=== PATIENT | male | born 1960 | race Caucasian/White ===

== ENCOUNTER → 2018-07-28 11:04 | Outpatient (CLI) | payer OTHER, SELFPAY ==
--- NOTE | 2018-07-28 11:21 | EKG12_ITS ---
Test Reason : PRE-OP Blood Pressure : / mmHG Vent. Rate : 055 BPM Atrial Rate : 055 BPM P-R Int : 154 ms QRS Dur : 100 ms QT Int : 416 ms P-R-T Axes : 021 037 050 degrees QTc Int : 397 ms Sinus bradycardia Otherwise normal ECG Confirmed by EVE ENGEL ([id number]), order editor VIKTORIYA SELF ([id number]) on 07/30/2018 10:55:07 AM Referred By: Miky Edge Confirmed By:EVE ENGEL
[2018-07-28 12:20] LABS: Hematocrit 48.2 % (40-54); Hemoglobin 16.6 g/dl (13.0-16.5); Mean Corp Hgb Conc 34.4 g/gl (32-36); Mean Corpuscular Hgb 29.3 pg (27.0-32.0); Mean Corpuscular Volume 85.2 fL (80-94); Mean Platelet Vol. 10.6 fl (6.2-12.0); Platelet Count 239 K/mm3 (150-450); RBC Distribution Width CV 13.4 % (11.6-14.6); RBC Distribution Width SD 41.2 fl (35.1-43.9); Red Blood Count 5.66 M/mm3 (4.6-6.2); White Blood Count 5.5 K/mm3 (4.4-11.0)
[2018-07-28 12:27] LABS: Scan Indicated on CBC? Y/N NO
[2018-07-28 12:49] LABS: Anion Gap 5 (5-15); BUN 22 mg/dL (7-18); BUN/Creat Ratio 21.8 RATIO (10-20); Calcium,Total 9.1 mg/dL (8.5-10.1); Chloride 109 mmol/L (98-107); Creatinine, Serum 1.01 mg/dL (0.70-1.30); EST Glomerular Filtration Rate 81 mL/min (>60); Est Glom Filt Rate - Afr Amer 98 mL/min (>60); Glucose 103 mg/dL (74-106); Potassium 3.5 mmol/L (3.5-5.1); Sodium Level 142 mmol/L (136-145)
== END ==
PROVIDERS: Family Provider Family Medicine; PCP Family Medicine; Referring Provider Surgery; Visit Provider Surgery
DX: Z01.810 Encounter for preprocedural cardiovascular examination (principal); Z01.812 Encounter for preprocedural laboratory examination
CPT/HCPCS: 36415; 80048; 85027; 93005

== ENCOUNTER → 2020-05-23 07:16 | Outpatient (CLI) | payer OTHER, SELFPAY ==
[2020-05-23 10:12] LABS: Absolute Lymphocyte Count 1.65 X10^3/uL (0.83-4.51); Absolute Neutrophil Count 2.6 X10^3/uL (2.0-7.7); Basophil# 0.03 X10^3/uL; Basophil% 0.6 % (0-1); Eosinophil# 0.13 X10^3/uL; Eosinophils% 2.7 % (0-5); Hematocrit 50.1 % (40-54); Hemoglobin 16.2 g/dL (13.0-16.5); Lymphocyte # 1.65 X10^3/ul (4.0); Lymphocyte % 34.2 % (19-41); Mean Corp Hgb Conc 32.3 g/dL (32-36); Mean Corpuscular Hgb 29.5 pg (27.0-32.0); Mean Corpuscular Volume 91.3 fL (80-94); Mean Platelet Vol. 10.7 fl (6.2-12.0); Monocyte# 0.41 X10^3/uL; Monocyte% 8.5 % (0-10); NRBC Flagged by Analyzer 0 % (0-5); Neutrophil # 2.59 X10^3/uL (2.7-7.7); Neutrophil % 53.6 % (47-70); Platelet Count 230 K/mm3 (150-450); RBC Distribution Width CV 13.2 % (11.6-14.6); RBC Distribution Width SD 44.5 fl (35.1-43.9); Red Blood Count 5.49 M/mm3 (4.6-6.2); White Blood Count 4.8 K/mm3 (4.4-11.0)
[2020-05-23 10:47] LABS: ALB/GLOB Ratio 1.3 RATIO (0.9-2.4); AST(SGOT) 35 U/L (15-37); Alanine Aminotransfer ALT/SGPT 64 U/L (16-61); Albumin, Serum 3.9 g/dL (3.2-5.0); Alkaline Phosphatase 88 U/L (45-117); Anion Gap 6 (5-15); BUN 16 mg/dL (7-18); BUN/Creat Ratio 14.5 RATIO (10-20); Chloride 105 mmol/L (98-107); Cholesterol 157 mg/dL (200); EST Glomerular Filtration Rate 73 mL/min (>60); Est Glom Filt Rate - Afr Amer 88 mL/min (>60); Globulin 3.1 g/dL (2.2-4.2); Glucose 89 mg/dL (74-106); High Density Lipoprotein 38 mg/dL; Potassium 3.2 mmol/L (3.5-5.1); Sodium Level 141 mmol/L (136-145); Thyroid Stim Hormone (TSH) 1.92 uIU/mL (0.358-3.74); Triglycerides 171 mg/dL; Very Low Density Lipoprotein 34 mg/dL (5-40)
[2020-05-24 03:07] LABS: Hepatitis C Ab <0.1 s/co ratio (0.0-0.9)
== END ==
DX: Z00.00 Encounter for general adult medical examination without abnormal findings (principal); Z11.59 Encounter for screening for other viral diseases; Z12.5 Encounter for screening for malignant neoplasm of prostate
CPT/HCPCS: 36415; 80053; 80061; 84153; 84443; 85025; 86803; 86804; G0103

== ENCOUNTER → 2020-06-08 07:55 | Outpatient (CLI) | payer OTHER, SELFPAY ==
--- NOTE | 2020-06-08 07:57 | ECHOD_ITS ---
Reason For Study: HTN Procedure This was a 2D Doppler, Color Flow transthoracic echocardiogram. Exam performed in department. Left Ventricle Normal LV size. Left ventricular systolic function is normal. The estimated ejection fraction is 65 %. No regional wall motion abnormalities noted. Right Ventricle Normal RV size. Normal systolic function. Atria Normal left atrium. Normal right atrium. Mitral Valve Normal mitral valve. Trivial eccentric mitral valve insufficiency. Tricuspid Valve Normal tricuspid valve. Mild tricuspid valve insufficiency. Aortic Valve Normal aortic valve. Trisinus/trileaflet aortic valve. Pulmonic Valve Normal pulmonic valve. Great Vessels Normal aortic root. The pulmonary artery is normal size. Normal inferior vena cava. Pericardium/Pleural No pericardial effusion. MMode/2D Measurements & Calculations LVIDd: 4.5 cm IVSd: 1.3 cm Ao root diam: 2.6 cm LVIDs: 2.1 cm LVPWd: 1.1 cm RVDd: 4.0 cm FS: 52.1 % LAV(MOD-bp): 54.0 ml LVAd ap4: 24.2 cm2 SV(MOD-sp4): 40.2 ml LAV(MOD-bp) Indexed: 25.1 ml/m2 EDV(MOD-sp4): 61.7 ml LAV(MOD-sp2): 55.8 ml EDV(sp4-el): 60.3 ml LAV(MOD-sp4): 51.8 ml LVAs ap4: 13.0 cm2 ESV(MOD-sp4): 21.5 ml ESV(sp4-el): 19.7 ml EF(MOD-sp4): 65.1 % EF(sp4-el): 67.3 % SV(sp4-el): 40.6 ml LA A4 area: 18.8 cm2 LA dimension(2D): 3.3 cm RA A4 area: 13.0 cm2 Doppler Measurements & Calculations MV E max sonia: 74.7 cm/sec Ao V2 max: 103.5 cm/sec LV V1 max: 98.0 cm/sec MV A max sonia: 56.6 cm/sec Ao max P.3 mmHg LV V1 max P.8 mmHg MV E/A: 1.3 Ao V2 mean: 75.5 cm/sec Ao mean P.5 mmHg Ao V2 VTI: 22.5 cm PA V2 max: 96.3 cm/sec TR max sonia: 194.2 cm/sec TR max P.1 mmHg Interpretation Summary Normal LV size. Left ventricular systolic function is normal. The estimated ejection fraction is 65 %. Mild tricuspid valve insufficiency. Structurally normal valves. Ordering Physician: LORENA GONZALES Referring Physician: LORENA GONZALES Performed By: Roof, Carmen, RDCS, RVT
== END ==
DX: I10 Essential (primary) hypertension (principal); I05.9 Rheumatic mitral valve disease, unspecified
CPT/HCPCS: 93306

== ENCOUNTER 2021-03-27 12:45 | Emergency (ER) | payer BC, SELFPAY ==
[2021-03-27 12:47] VITALS: BP 134/107; PULSE 80; RESP 18; TEMP 36.2; O2SAT 96; BMI 29.9
[2021-03-27 13:23] LABS: Absolute Lymphocyte Count 1.12 X10^3/uL (0.83-4.51); Basophil# 0.01 X10^3/uL; Basophil% 0.1 % (0-1); Hematocrit 48.2 % (40-54); Hemoglobin 16.7 g/dL (13.0-16.5); Lymphocyte # 1.12 X10^3/ul (0.83-4.51); Mean Corp Hgb Conc 34.6 g/dL (32-36); Mean Corpuscular Hgb 29.5 pg (27.0-32.0); Mean Platelet Vol. 10.9 fl (6.2-12.0); NRBC Flagged by Analyzer 0 % (0-5); Neutrophil # 6.03 X10^3/uL (2.7-7.7); Neutrophil % 80.5 % (47-70); Platelet Count 156 K/mm3 (150-450); RBC Distribution Width CV 13.5 % (11.6-14.6); RBC Distribution Width SD 42.1 fl (35.1-43.9); Red Blood Count 5.67 M/mm3 (4.6-6.2); White Blood Count 7.5 K/mm3 (4.4-11.0)
[2021-03-27 13:31] LABS: Anion Gap 10 (5-15); BUN 48 mg/dL (7-18); BUN/Creat Ratio 23.9 RATIO (10-20); Calcium,Total 9.1 mg/dL (8.5-10.1); Chloride 93 mmol/L (98-107); Creatinine, Serum 2.01 mg/dL (0.70-1.30); EST Glomerular Filtration Rate 36 mL/min (>60); Est Glom Filt Rate - Afr Amer 44 mL/min (>60); Estimated Creatinine Clearance 41.63 ml/min; Glucose 138 mg/dL (74-106); Sodium Level 133 mmol/L (136-145)
[2021-03-27 14:32] VITALS: BP 122/82; PULSE 90; RESP 21; RESP 23; O2SAT 95
--- NOTE | 2021-03-27 14:33 | EKG12_ITS ---
Test Reason : SOB Blood Pressure : / mmHG Vent. Rate : 090 BPM Atrial Rate : 090 BPM P-R Int : 154 ms QRS Dur : 098 ms QT Int : 366 ms P-R-T Axes : 020 026 022 degrees QTc Int : 447 ms Normal sinus rhythm Normal ECG Confirmed by VIKASH REYNA MD ([id number]), online content editor VERNELL HAMILTON ([id number]) on 03/29/2021 10:28:55 AM Referred By: PELON Confirmed By:VIKASH REYNA MD
[2021-03-27 15:04] LABS: D-Dimer Quantitative (DVT/PE) 0.94 FEU/ug/m (0.27-0.49)
[2021-03-27 15:05] LABS: Troponin-I HS 18 pg/mL (3.0-78.0)
[2021-03-27 15:11] LABS: BNP,B-Type NATRIURETIC PEPTIDE 8.2 pg/mL (0-100)
--- NOTE | 2021-03-27 15:18 | EDS_ITS ---
HPI HPI - URI History of Present Illness Chief Complaint: Shortness of Breath Narrative Narrative: 60-year-old male with history of hypertension hyperlipidemia presenting with illness since 17 March 2021. He states that this began with a cough. He has had fatigue and body aches. His fevers have resolved. He expresses that he still has dyspnea especially with exertion. Patient states he is not having chest pain. He does report that he has decreased p.o. intake because he just does not feel like eating or drinking. He has had some diarrhea but is not having any abdominal pain. ROS ROS ED Constitutional Constitutional ED: Reports chills and fever(s) Eyes Eyes: Denies blurry vision or diplopia ENT ENT ED: Denies rhinorrhea or sore throat Cardiovascular Cardiovascular: Denies chest pain or palpitations Respiratory/Chest Respiratory/Chest: Reports cough, dyspnea and dyspnea on exertion Gastrointestinal Gastrointestinal: Reports diarrhea; Denies abdominal pain, nausea or vomiting Genitourinary Genitourinary ED: Denies dysuria or hematuria Musculoskeletal Musculoskeletal: Reports myalgias; Denies arthralgias or neck pain Integumentary Denies Abrasions or rash Neurologic Neurologic: Denies headache(s), paresthesias or weakness PFSH PFSH Medical History Anxiety Hypertension Home Medications dexamethasone 6 mg PO DAILY #7 tab 03/27/21 [Rx Last Taken Unknown] ondansetron 4 mg PO Q8H PRN PRN #20 tab 03/27/21 [Rx Last Taken Unknown] Allergy/AdvReac Type Severity Reaction Status Date / Time No Known Allergies Allergy Verified 03/27/21 12:50 Social History Smoking Status: Never smoker EXAM Physical Exam Const Vital Signs: 03/27/21 12:47 03/27/21 14:32 Temperature 97.2 F L Temperature Source Temporal Pulse Rate 80 90 Respiratory Rate 18 23 H Blood Pressure 134/107 H 122/82 H Blood Pressure Mean 116 95 Pulse Ox 96 95 Oxygen Delivery Method Room Air Room Air General Appearance ED: NAD; Negative for cyanotic, diaphoretic or pallor HEENT normocephalic and atraumatic Eyes PERRL and EOMs intact bilaterally Neck no lymphadenopathy, supple and no meningeal signs Resp normal respiratory effort Auscultation: rales bilateral base; Negative for wheezes GI non-tender and non-distended Palpation: soft Neuro oriented x3 and CN's II-XII intact bilaterally Sensorium / Orientation: alert Motor Exam: strength 5/5 throughout Psych mental status grossly normal Skin General Skin Exam: Negative for jaundice or pallor MDM MDM MDM Narrative Medical decision making narrative: Patient presenting with symptoms of COVID-19 since 17 March 2021. Patient on vaccinated. He states he would be amenable to inpatient therapeutic if he qualified. He is given dexamethasone 6 mg after tested positive for COVID-19. EKG on my interpretation shows sinus rhythm with a ventricular rate of 90 bpm without sign of ischemic change or dysrhythmia. CBC shows no leukocytosis white blood cell count of 7.5. Hemoglobin 16.7 and likely hemoconcentrated since he is dehydrated with a creatinine of 2.0 and a BUN of 48. Patient was given a bolus of IV fluids 500 cc. BMP also does show that his potassium is low which is likely due to decreased p.o. intake. Magnesium was ordered and patient was given 40 mEq of potassium. BNP is 8.2. High-sensitivity troponin is 18. D-dimer is elevated at 0.94 and patient had a CTA of the chest which did not show pulmonary emboli. Patient's pulse ox was 85% on room air initially. When he ambulates on 2 L he is 92 to 93%. I discussed this with his primary care doctor Dr. Sanju Maya who is in [place]. I discussed the patient's acute kidney injury with a creatinine of 2.01 as well as his low potassium and other electrolytes. Believe this is from him not eating and drinking enough. He did agree. In addition to this the patient's glucose is 138 and he has not eaten in 24 hours so I did express my concern for possibly early diabetes and he acknowledged understanding of this. He states that he will follow-up blood work this next week and add an A1c to this. P atient was counseled to drink plenty of fluids especially fluids with electrolytes such as Gatorade and Pedialyte do not contain sugar. Patient will be discharged home with a prescription for Zofran and dexamethasone. He is to follow-up with his primary care physician. Impression: 1. COVID-19 pneumonitis 2. Hypokalemia 3. Dehydration 4. Acute kidney injury 5. Hypoxia 6. Elevated glucose Lab Data Attestation: I reviewed the patient's lab results. Labs: Laboratory Results - last 24 hr 03/27/21 03/27/21 03/27/21 13:10 13:10 13:10 WBC 7.5 RBC 5.67 Hgb 16.7 H Hct 48.2 MCV 85.0 MCH 29.5 MCHC 34.6 RDW Std Deviation 42.1 RDW Coeff of Rachelle 13.5 Plt Count 156 MPV 10.9 Immature Gran % (Auto) 0.400 Neut % (Auto) 80.5 H Lymph % (Auto) 15.0 L Mcmullen % (Auto) 4.0 Eos % (Auto) 0.0 Baso % (Auto) 0.1 Absolute Neuts (auto) 6.0 Absolute Lymphs (auto) 1.12 Nucleated RBC % 0 D-Dimer Quant (PE/DVT) 0.94 H* Sodium 133 L Potassium 3.0 L Chloride 93 L Carbon Dioxide 30.0 Anion Gap 10 BUN 48 H Creatinine 2.01 H Estim Creat Clear Calc 41.63 Est GFR (MDRD) Af Amer 44 L Est GFR (MDRD) Non-Af 36 L BUN/Creatinine Ratio 23.9 H Glucose 138 H Calcium 9.1 Magnesium Troponin I High Sens B-Natriuretic Peptide 03/27/21 03/27/21 03/27/21 13:10 13:10 13:10 WBC RBC Hgb Hct MCV MCH MCHC RDW Std Deviation RDW Coeff of Rachelle Plt Count MPV Immature Gran % (Auto) Neut % (Auto) Lymph % (Auto) Mcmullen % (Auto) Eos % (Auto) Baso % (Auto) Absolute Neuts (auto) Absolute Lymphs (auto) Nucleated RBC % D-Dimer Quant (PE/DVT) Sodium Potassium Chloride Carbon Dioxide Anion Gap BUN Creatinine Estim Creat Clear Calc Est GFR (MDRD) Af Amer Est GFR (MDRD) Non-Af BUN/Creatinine Ratio Glucose Calcium Magnesium 2.4 Troponin I High Sens 18 B-Natriuretic Peptide 8.2 Radiography Diagnostic Testing: Clinical Impression(s) from Imaging Studies Chest CTA 03/27/21 15:35 IMPRESSION: Bilateral pulmonary infiltrates involving both lungs worse in the lower lobes and in a preferential lateral distribution. Pneumonitis associated with Covid should be ruled out. Electronically Signed: Gilbert Deluca MD at 15:57 EST , Service support , Discharge Plan Triage Chief Complaint: Shortness of Breath ED Provider: Pino Taylor Dx/Rx/DC Orders Instructions: Coronavirus Disease 2019 (COVID-19): Caring for Yourself or Others, COVID-19: Lying in a Prone Position (Proning) Prescriptions: New dexamethasone 6 mg tablet 6 mg PO DAILY Qty: 7 RF: 0 ondansetron 4 mg tablet,disintegrating 4 mg PO Q8H PRN PRN (Reason: Nausea) Qty: 20 RF: 0 Referrals: KANWAL MAYA [Other] Disposition Disposition: Home, Self Care
[2021-03-27] MEDS: Potassium Chloride Oral Tablet 20 MEQ 40 MEQ PO (15:21)
[2021-03-27 15:25] LABS: Magnesium 2.4 mg/dL (1.6-2.6)
[2021-03-27] MEDS: dexAMETHasone 10 MG/ML Vial 6 MG IV (15:28)
--- NOTE | 2021-03-27 15:35 | CT_ITS ---
STUDY: CTA CHEST REASON FOR EXAM: Male, 60 years old. Dyspnea RADIATION DOSAGE (If Supplied By Facility): CTDIvol = ( 12.00 ) mGy, DLP = ( 479.94 ) mGycm TECHNIQUE: The examination was performed with the intravenous administration of IV 100mL Isovue-370. Post-processing of the angiographic images was performed, with multiplanar reformation and 3D reconstruction. Individualized dose optimization techniques were used for this CT. COMPARISON: None. FINDINGS: Normal enhancement of the main pulmonary artery and right and left pulmonary arteries. Normal enhancement of the bilateral peripheral pulmonary arteries. There is no demonstrated pulmonary embolism. Normal thoracic aorta and visualized great vessels. There is no demonstrated aortic dissection. Normal heart and pericardium. Normal mediastinum. Normal hilar regions. Normal visualized trachea and bronchi. The lungs are well expanded. Diffuse bilateral pulmonary infiltrates involving both upper and lower lobes. This is more prominent in the lower lobes. Normal pleura. Normal chest wall structures. Normal osseous structures. Diffuse fatty infiltration of the liver. CT/CTA Chest W/WO Contrast IMPRESSION: Bilateral pulmonary infiltrates involving both lungs worse in the lower lobes and in a preferential lateral distribution. Pneumonitis associated with Covid should be ruled out. Electronically Signed: Gilbert Deluca MD at 15:57 EST , Service support ,
--- NOTE | 2021-03-27 16:00 | ED.RN ---
PT. HAS VERBALIZED THEY DO NOT WISH TO BE INTUBATED.
[2021-03-27 16:43] VITALS: O2SAT 96
[2021-03-27 16:54] VITALS: O2SAT 93
--- NOTE | 2021-03-27 17:15 | CM.ED ---
Social Work Referral Source: Dr. Taylor Reason for Consult: COVID-19 positive, requires home O2 Patient requires 2L home O2 for home going. Patient in agreement to have O2 set up through [employer]. Clinical documentation and [employer] faxed and called to [employer] after hours. Portable tank provided and RT to review with patient. CM notified for follow up. Plan: Home with O2 through [employer], sent home on 2L D. Richy, DIRECTOR SALES TRAINING, CUSTOMER FACILITIES SUPERVISOR
--- NOTE | 2021-03-28 17:36 | CASEMGMT ---
ELAYNE MONTEIRO ED COVID Home O2 Follow-up: This ELAYNE MONTEIRO contacted pt via phone. Pt's answered and pt deferred to her as he did not feel up to speaking for any length of time. Pt's reports pt to be feeling better. Reports his PO to be in the low 90's on 2l/min O2. ,Pt denies any SOB. Pt's reports pt to be eating, drinking, and showered this afternoon. Reports that she and pt both received immunity infusions at [facility] this afternoon. Pt does c/o weakness. Prescriptions were obtained with their [id number] assistance and they plan to call their PCP tomorrow to arrange follow-up. Pt's denies any questions or concerns at this time. Marielos Cuenca RN CM
--- NOTE | 2021-03-29 13:36 | CASEMGMT ---
LEAYNE MONTEIRO NOTE: TC to pt for ED O2 f/u. No answer. Non-descript VM left for pt to return call if he has any questions or concerns. ELAYNE MONTEIRO phone number provided. Thais GERARDO RN CM
== END 2021-03-27 17:57 | disposition home or self-care (01) ==
PROVIDERS: Emergency Provider Student in an Organized Health Care Education/Training Program; Visit Provider Student in an Organized Health Care Education/Training Program
DX: U07.1 COVID-19 (principal); N17.9 Acute kidney failure, unspecified; J12.82 Pneumonia due to coronavirus disease 2019; E86.0 Dehydration; I10 Essential (primary) hypertension; E78.5 Hyperlipidemia, unspecified; E87.6 Hypokalemia; R73.9 Hyperglycemia, unspecified; R09.02 Hypoxemia
CPT/HCPCS: 71275; 80048; 83735; 83880; 84484; 85025; 85379; 87426; 93005; 94760; 96374; 99282; J7030; Q9967; A4216

== ENCOUNTER → 2022-12-10 | Outpatient (CLI) | payer BC, SELFPAY | END | disposition home or self-care (01) | LOC: SL 08:01 | PROVIDERS: Visit Provider Nurse Practitioner Acute Care | DX: G47.33 Obstructive sleep apnea (adult) (pediatric) (principal) | CPT/HCPCS: 95806 ==